=== PATIENT | female | born 1955 | race Two or more races ===

== ENCOUNTER 2023-03-08 18:11 | Emergency (ER) | payer OTHER ==
[~2023-03-08] VITALS: Ht 149.9 cm; Wt 84.4 kg
[~2023-03-08 18:11] MED LIST: LOREEV XR2 MG PO; RISPERIDONE1 MG PO
== END 2023-03-08 19:44 | disposition home or self-care (01) ==
LOC: ER 18:11
DX: M25.571 Pain in right ankle and joints of right foot (principal); M77.31 Calcaneal spur, right foot
CPT/HCPCS: 73600; 96372; 99284; J1885

== ENCOUNTER 2023-08-03 17:43 | Emergency (ER) | payer OTHER ==
[~2023-08-03] VITALS: Ht 149.9 cm; Wt 90.7 kg
[2023-08-03] MEDS ORDERED: LEVOTHYROXINE75 MCG PO (17:56)
[2023-08-03] MEDS ORDERED: RAMIPRIL2.5 MG PO (17:56)
[2023-08-03] MEDS ORDERED: ATORVASTATIN CA10 MG PO (17:56)
[2023-08-03] MEDS ORDERED: CARVEDILOL6.25 M1 PO (17:56)
[2023-08-03] MEDS ORDERED: METFORMIN HCL850 M1 PO (17:57)
[2023-08-03] MEDS ORDERED: NAPROXEN25 GM (17:57)
[2023-08-03] MEDS ORDERED: PLAVIX75 MG (17:57)
[2023-08-03] MEDS ORDERED: NEXIUM2.5 MG (17:58)
[2023-08-03] MEDS ORDERED: ACID REDUCER20 M1 (17:58)
[2023-08-03] MEDS ORDERED: FAMOTIDINE/PF 20 MG in 0.9 % SODIUM CHLORIDE 8 ML IV PUSH STA (18:53)
[2023-08-03] MEDS ORDERED: ONDANSETRON HCL 2 MG/ML VIAL IV ONE (19:00)
[2023-08-03] MEDS ORDERED: 0.9 % SODIUM CHLORIDE 1,000 ML IV SCH (19:00)
[2023-08-03] MEDS ORDERED: KETOROLAC TROMETHAMINE 30 MG VIAL IV ONE (19:00)
[2023-08-03 19:48] LABS: HEMATOCRIT 36.9 % (36.0-45.00); HEMOGLOBIN 12.6 g/dL (12.0-15.00); MEAN CELL VOLUME 84.6 fL (80.00-100.00); MEAN CORPUSCULAR HEMOGLOBIN 28.8 pg (27.00-32.0); PLATELET COUNT 258 K/uL (150-450); RED BLOOD COUNT 4.36 M/uL (4.00-6.00); RED CELL DISTRIBUTION WIDTH 13.7 % (11.5-14.5)
[2023-08-03 20:17] LABS: ALBUMIN 3.6 gm/dL (3.4-5.0); ALKALINE PHOSPHATASE 63 U/L (50-136); ALT/SGPT 21 U/L (12-78); AMYLASE 55 U/L (25-115); ANION GAP 6 (10.0-20.0); AST/SGOT 19 U/L (15-37); BILIRUBIN TOTAL 0.24 mg/dL (0.3-1.2); BILIRUBIN,CONJUGATED < 0.10 mg/dL (0.0-0.2); BILIRUBIN,UNCONJUGATED 0.14 mg/dL (0.0-0.6); BLOOD UREA NITROGEN 14 mg/dL (7-18); BUN CREA RATIO 20 (7.0-25.0); CALCIUM 9.5 mg/dL (8.5-10.1); CARBON DIOXIDE 32 mEq/L (21-32); CHLORIDE 105 mmol/L (98-107); CREATININE SERUM 0.71 mg/dL (0.55-1.02); GFR 82.36; GLOBULINA 3.7 G/DL (2.4-3.5); GLUCOSE FASTING 85 mg/dL (65-100); LIPASE 26 U/L (13-75); OSMOLALITY SERUM 277 MOSM/KG (275-295); POTASSIUM 3.94 mEq/L (3.5-5.1); SODIUM 139 mmol/L (136-145); TOTAL PROTEIN 7.3 gm/dL (6.4-8.2)
[2023-08-03] MEDS ORDERED: PEPCID AC20 MG PO (20:55)
[2023-08-03] MEDS ORDERED: LEVSIN/SL0.125 MG SL (20:55)
== END 2023-08-03 21:02 | disposition home or self-care (01) ==
LOC: ER 17:43
PROVIDERS: General Practice
DX: K29.70 Gastritis, unspecified, without bleeding (principal); I11.9 Hypertensive heart disease without heart failure; E11.9 Type 2 diabetes mellitus without complications; Z79.84 Long term (current) use of oral hypoglycemic drugs
CPT/HCPCS: 36415; 96365; 96366; 99282; J1885; J2405; J3490; J7030

== ENCOUNTER → 2024-10-03 | Emergency (ER) | payer OTHER ==
[~2024-10-03] VITALS: Ht 165.1 cm; Wt 86.2 kg
[~2024-10-03] MED LIST changes: +ACID REDUCER20 M1; +ATORVASTATIN CA10 MG PO; +CARVEDILOL6.25 M1 PO; +FAMOTIDINE/PF 20 MG/2 ML VIAL IV ONE; +FAMOTIDINE/PF 20 MG/2 ML VIAL ONE; +LEVOTHYROXINE75 MCG PO; +LEVSIN/SL0.125 MG SL; +METFORMIN HCL850 M1 PO; +NAPROXEN25 GM; +NEXIUM2.5 MG; +PEPCID AC20 MG PO; +PLAVIX75 MG; +RAMIPRIL2.5 MG PO
[2024-10-03 19:18] LABS: HEMATOCRIT 40.2 % (36.0-45.00); HEMOGLOBIN 13.3 g/dL (12.0-15.00); MEAN CELL VOLUME 83.4 fL (80.00-100.00); MEAN CORPUSCULAR HEMOGLOBIN 27.7 pg (27.00-32.0); MEAN CORPUSCULAR HGB CONC 33.2 g/dl (32.0-36.0); PLATELET COUNT 261 K/uL (150-450); RED BLOOD COUNT 4.82 M/uL (4.00-6.00); RED CELL DISTRIBUTION WIDTH 13.5 % (11.5-14.5)
[2024-10-03 19:46] LABS: URINE APPEARANCE Clear; URINE BILIRRUBIN Negative (NEGATIVE); URINE BLOOD Negative; URINE COLOR Yellow; URINE GLUCOSE Negative (NEGATIVE); URINE KETONE Negative (NEGATIVE); URINE LEUKOCYTE Large; URINE NITRATE Negative; URINE PROTEIN Negative (NEGATIVE); URINE UROBILINOGEN 0.2 E.U./dl
[2024-10-03 19:48] LABS: CALCIUM 9.2 mg/dL (8.5-10.1); CREATININE SERUM 0.75 mg/dL (0.55-1.02); GFR 77.08; POTASSIUM 4.03 mEq/L (3.5-5.1)
[2024-10-03 19:50] LABS: URINE BACTERIA 181.1 uL (0.0-1933); URINE EPITHELIAL CELLS 30.7 uL (0.0-38.8); URINE RBC 2.3 uL (0.0-20.8); URINE WBC 408.4 uL (0.0-23.2)
[2024-10-03 20:18] LABS: URINE CAST 0.29 uL (0.0-1.40)
== END | disposition home or self-care (01) ==
LOC: ER 15:46
PROVIDERS: General Practice
DX: K29.70 Gastritis, unspecified, without bleeding (principal); Z91.013 Allergy to seafood; F32.89 Other specified depressive episodes; E03.8 Other specified hypothyroidism; I10 Essential (primary) hypertension; I11.9 Hypertensive heart disease without heart failure; B96.81 Helicobacter pylori [H. pylori] as the cause of diseases classified elsewhere; N39.0 Urinary tract infection, site not specified; E11.9 Type 2 diabetes mellitus without complications; Z79.84 Long term (current) use of oral hypoglycemic drugs
CPT/HCPCS: 36415; 96365; 99282; J3490

== ENCOUNTER 2024-10-27 12:35 | Emergency (ER) | payer OTHER ==
[~2024-10-27] VITALS: Ht 149.9 cm; Wt 90.7 kg
[~2024-10-27 12:35] MED LIST changes: -FAMOTIDINE/PF 20 MG/2 ML VIAL IV ONE; -FAMOTIDINE/PF 20 MG/2 ML VIAL ONE
[2024-10-27] MEDS ORDERED: KETOROLAC TROMETHAMINE 30 MG VIAL IV ONE (15:15)
[2024-10-27] MEDS ORDERED: FAMOtidine 10 MG/ML (4ML VIAL) IV ONE (15:15)
[2024-10-27] MEDS ORDERED: 0.9 % SODIUM CHLORIDE 1,000 ML IV ONE (15:15)
[2024-10-27] MEDS ORDERED: METHYLPREDNISOLONE SOD SUCC 40 MG VIAL IV ONE (16:15)
[2024-10-27] MEDS ORDERED: DIPHENHYDRAMINE HCL 50 MG/ML VIAL 1ML IV ONE (16:15)
[2024-10-27] MEDS ORDERED: FAMOTIDINE/PF 20 MG/2 ML VIAL ONE (16:20)
[2024-10-27] MEDS ORDERED: KETOROLAC TROMETHAMINE 30 MG VIAL ONE (16:20)
[2024-10-27] MEDS ORDERED: DIPHENHYDRAMINE HCL 50 MG/ML VIAL 1ML ONE (16:22)
[2024-10-27] MEDS ORDERED: METHYLPREDNISOLONE SOD SUCC 125 MG VIAL ONE (16:22)
[2024-10-27 17:02] LABS: BASO % 0.2 % (0.1-1.2); EOS # 0.13 (0.04-0.54); EOS % 1.3 % (0.7-7.0); HEMATOCRIT 42.5 % (34.1-44.9); HEMOGLOBIN 13.9 g/dL (11.2-15.7); LYMPH # 2.18 (1.18-3.74); LYMPH % 22.2 % (19.3-53.1); MEAN CORPUSCULAR HEMOGLOBIN 27.4 pg (25.6-32.2); MONO # 0.86 (0.24-0.82); MONO % 8.8 % (4.7-12.5); NEUT # 6.58 (1.56-6.13); NEUT % 67.2 % (34.0-71.1); PLATELET COUNT 293 K/uL (163-369); RED BLOOD COUNT 5.08 M/uL (3.93-5.22); RED CELL DISTRIBUTION WIDTH 13.6 % (11.6-14.4)
[2024-10-27 17:25] LABS: INR 1.01; PARTIAL THROMBOPLASTIN TIME 25.8 SECONDS (22.0-34.0)
[2024-10-27 17:32] LABS: ALBUMIN 3.9 gm/dL (3.4-5.0); BILIRUBIN TOTAL 0.32 mg/dL (0.3-1.2); CALCIUM 9.9 mg/dL (8.5-10.1); CREATININE SERUM 0.71 mg/dL (0.55-1.02); GFR 82.11; GLOBULINA 4.3 G/DL (2.4-3.5); POTASSIUM 4.24 mEq/L (3.5-5.1); TOTAL PROTEIN 8.2 gm/dL (6.4-8.2)
[2024-10-27 19:50] LABS: PH,URINE 5.5 (5.0-8.0); URINE APPEARANCE Clear; URINE BILIRRUBIN Negative (NEGATIVE); URINE BLOOD Negative; URINE COLOR Yellow; URINE GLUCOSE Negative (NEGATIVE); URINE KETONE Negative (NEGATIVE); URINE LEUKOCYTE Small; URINE NITRATE Negative; URINE PROTEIN Negative (NEGATIVE); URINE UROBILINOGEN 0.2 E.U./dl
[2024-10-27 19:54] LABS: URINE BACTERIA 78.3 uL (0.0-1933); URINE EPITHELIAL CELLS 13.9 uL (0.0-38.8); URINE WBC 30.3 uL (0.0-23.2)
[2024-10-27 19:59] LABS: URINE CAST 0.14 uL (0.0-1.40); URINE RBC 1.1 uL (0.0-20.8)
== END 2024-10-27 23:08 | disposition home or self-care (01) ==
LOC: ER 12:48
PROVIDERS: General Practice
DX: R10.32 Left lower quadrant pain (principal); R10.9 Unspecified abdominal pain; I10 Essential (primary) hypertension; E11.9 Type 2 diabetes mellitus without complications; Z79.84 Long term (current) use of oral hypoglycemic drugs; Z91.012 Allergy to eggs; Z91.013 Allergy to seafood; Z91.018 Allergy to other foods; Z91.041 Radiographic dye allergy status
CPT/HCPCS: 36415; 74176; 96365; 96366; 99284; J1200; J1885; J3490 ×2; J7030